=== PATIENT | female | born 1960 | race African-American/Black ===

== ENCOUNTER 2017-01-27 18:51 | Emergency (ER) | payer OTHER ==
[~2017-01-27] VITALS: Ht 165.1 cm; Wt 80.7 kg
[~2017-01-27 18:51] MED LIST: IBUPROFEN600 MG ORAL; TRAMADOL HCL50 MG ORAL; TYLENOL325 MG ORAL
[2017-01-27 19:32] VITALS: BP 146/87
[2017-01-27] MEDS ORDERED: Norco 5mg/325mg tab ORAL ONE (20:45)
[2017-01-27] MEDS ORDERED: TRAMADOL HCL50 MG ORAL (20:51)
[2017-01-27] MEDS ORDERED: IBUPROFEN600 MG ORAL (20:51)
[2017-01-27 21:07] VITALS: BP 138/56
--- NOTE | 2017-01-27 23:05 | Emergency Room Report ---
History of Present Illness General Chief Complaint: Pain Source: Patient (IDALMIS DE LA VEGA) Present Illness HPI The patient is a 56-year-old female presenting for right knee pain. She states that she had knee replacement done many months ago without any known complication. Pain has gradually been increasing and is an 8/10 dull ache. Worse with movement. She states that she has not taken any pain medications for this as she ran out and has been unable to contact her doctor. She denies any recent injury to this area. She denies any other symptoms including nausea , vomiting, fever, chills, numbness or tingling (IDALMIS DE LA VEGA P.A.) Allergies: Coded Allergies: LISINOPRIL (Verified Allergy, Severe, lips swell, 04/02/16) Patient History Past Medical History: see triage record Pertinent Family History: none Last Menstrual Period: N/A Reviewed Nursing Documentation: PMH: Agreed, PSxH: Agreed (IDALMIS [email or web address] LA [email or web address]) Nursing Documentation-PMH Hx Hypertension: Yes Hx Asthma: Yes Hx Diabetes: Yes (IDALMIS DE LA VEGA P.AJenn) Review of Systems All Other Systems: negative except mentioned in HPI (IDALMIS DE LA VEGA P.A.) Physical Exam Vital Signs Date Time Temp Pulse Resp B/P (MAP) Pulse Ox O2 Delivery O2 Flow Rate FiO2 01/27/17 19:12 98.1 73 18 146/87 97 Room Air Sp02 EP Interpretation: reviewed, normal General Appearance: no apparent distress, alert, GCS 15, non-toxic Head: normocephalic, atraumatic Eyes: bilateral eye normal inspection, bilateral eye PERRL ENT: hearing grossly normal, normal pharynx, no angioedema, normal voice Respiratory: chest non-tender, lungs clear, normal breath sounds, speaking full sentences Musculoskeletal: normal range of motion - R knee, swelling - R knee, other - R knee surgical scar Neurologic: alert, oriented x3, responsive, motor strength/tone normal, sensory intact, speech normal Psychiatric: judgement/insight normal, memory normal, mood/affect normal, no suicidal/homicidal ideation Skin: normal color, no rash, warm/dry, well hydrated (IDALMIS DE LA [email or web address]) Medical Decision Making PA Attestation Dr. Wiseman is my supervising physician. Patient management was discussed with my supervising physician (IDALMIS DE LA VEGA) Diagnostic Impression: Primary Impression: Knee pain Qualified Codes: M25.561 - Pain in right knee ER Course The patient is a 56-year-old female s/p R knee replacement presenting for right knee pain. DDx considered but not limited to: chronic pain, sprain, contusion, septic arthritis, gout, among others PE: Afebrile. NAD R knee: Surgical scar. No erythema. Full active and passive ROM. Skin temperature not elevated. R knee Xray shows no acute fracture. Hardware in place. Radiology report states possible effusion. The patient was informed she needs to see her PMD and surgeon SYLVESTER. She is to return to ER if she experiences fever, chills, increased pain, or limited ROM. (IDALMIS DE LA VEGA) ER Course I have reviewed and agree with PA's XR result interpreations Eletronically signed by reji Wiseman MD (Reji Wiseman M.D.) Other X-Ray Diagnostic Results Other X-Ray Diagnostic Results : X-Ray ordered: R knee # of Views/Limited Vs Complete: 3 View Indication: Pain EP Interpretation: Yes Interpretation: no dislocation, no soft tissue swelling, no fractures Impression: No acute disease Electronically Signed by: LUIS CARLOS Angelo Scribe Text I have reviewed the films with my SP. No acute fracture. Minimal effusion. (IDALMIS DE LA VEGA) Last Vital Signs Date Time Temp Pulse Resp B/P (MAP) Pulse Ox O2 Delivery O2 Flow Rate FiO2 01/27/17 21:07 81 20 138/56 97 Room Air 01/27/17 19:32 98.1 Status: improved (IDALMIS DE LA VEGA.A.) Disposition: HOME, SELF-CARE Condition: Improved Scripts Tramadol Hcl* (ULTRAM*) 50 Mg Tablet 50 MG ORAL Q6H Y for For Pain, #10 TAB 0 Refills Prov: IDALMIS DE LA VEGA P.A. 01/27/17 Ibuprofen* (MOTRIN*) 600 Mg Tablet 600 MG ORAL Q8H Y for For Pain, #30 TAB 0 Refills Prov: IDALMIS DE LA VEGA P.A. 01/27/17 Referrals: [employer] [facility],REFERRIN (PCP) Patient Instructions: Knee Pain Additional Instructions: I discussed my findings with the patient. All questions and concerns have been answered. Treatment and medication compliance have been addressed. Return to ED if pain remains or worsens, numbness or tingling occurs, new rash is noticed, fever is noticed, or if needed for any reason. Patient verbalized understanding of discharge instructions. Please followup with your orthopedic surgeon IDALMIS DE LA VEGA Jan 27, 2017 23:05 Reji Wiseman M.D. Feb 01, 2017 06:29
--- NOTE | 2017-01-28 10:45 | Diagnostic Imaging Report ---
Indication: PAIN Technique: 3 views of the right knee Comparison: None Findings:There is a right knee prosthesis. There is a possible bony defect in the inferior pole of the patella. Some heterotopic ossification is seen surrounding the joint. There is probably a small joint effusion. There is also portion of the tibial prosthesis protruding into the joint space. Uncertain as to if this is physiologic Impression:Right knee prosthesis Suspect joint effusion Evidence of heterotopic ossification Questionable bony defect inferior pole of the patella. Possibly postsurgical, but destructive process not excludable Findings discussed by phone with Dr. Sotelo at the time of interpretation
== END 2017-01-27 21:57 | disposition home or self-care (01) ==
LOC: EMR 19:55
DX: M25.561 Pain in right knee (principal); E11.9 Type 2 diabetes mellitus without complications; I10 Essential (primary) hypertension; J45.909 Unspecified asthma, uncomplicated; Z96.651 Presence of right artificial knee joint; Z88.8 Allergy status to other drugs, medicaments and biological substances
CPT/HCPCS: 99284

== ENCOUNTER 2017-02-02 18:13 | Emergency (ER) | payer OTHER ==
[~2017-02-02] VITALS: Ht 165.1 cm; Wt 80.7 kg
[2017-02-02 18:18] VITALS: BP 141/88
--- NOTE | 2017-02-02 18:24 | Emergency Room Report ---
History of Present Illness General Chief Complaint: Dizziness Source: Patient Present Illness HPI 56YOF with DM came with nausea, lightheadedness, near-syncope, chills, and vomiting after getting on bus Was 1 hour after eating chicken sandwich from [employer] Denies actual syncope, chest pain, SOB, abd pain, headache, urinary complaints Vitals stable on scene per EMS Blood sugar 126 here Allergies: Coded Allergies: LISINOPRIL (Verified Allergy, Severe, lips swell, 04/02/16) Patient History Past Medical History: DM Past Surgical History: none, other - knee replacement Pertinent Family History: none Social History: Denies: smoking, alcohol use, drug use Now: No Immunizations: UTD Reviewed Nursing Documentation: PMH: Agreed, PSxH: Agreed Nursing Documentation-PMH Hx Hypertension: Yes Hx Asthma: Yes Hx Diabetes: Yes Review of Systems All Other Systems: negative except mentioned in HPI Physical Exam Vital Signs Date Time Temp Pulse Resp B/P (MAP) Pulse Ox O2 Delivery O2 Flow Rate FiO2 02/02/17 18:08 97.9 67 18 157/86 99 Room Air Sp02 EP Interpretation: reviewed, normal General Appearance: normal inspection, well appearing, no apparent distress, alert, GCS 15, non-toxic Head: normocephalic, atraumatic Eyes: bilateral eye PERRL, bilateral eye EOMI ENT: normal ENT inspection, hearing grossly normal, normal voice Neck: normal inspection, full range of motion, supple, no bony tend Respiratory: normal inspection, lungs clear, normal breath sounds, no respiratory distress, no retraction, no wheezing Cardiovascular #1: regular rate, rhythm, no edema Gastrointestinal: normal inspection, normal bowel sounds, non tender, soft, no guarding, no hernia Genitourinary: no CVA tenderness Musculoskeletal: normal inspection, back normal, normal range of motion, Leticia' s Sign negative Neurologic: normal inspection, alert, oriented x3, responsive, broadband installer III-XII nml as tested, motor strength/tone normal, speech normal Psychiatric: normal inspection, judgement/insight normal, mood/affect normal Skin: normal inspection, normal color, no rash Lymphatic: normal inspection Medical Decision Making Diagnostic Impression: Primary Impression: Near syncope Additional Impression: Lightheaded ER Course 56YOF with what sounds like near-vasovagal mediated syncope Atraumatic No chest pain, SOB Blood sugar, vitals normal ECG is non-ischemic. LVH criteria Less nauseated after zofran Tolerating PO Likely d/t viral gastroenteritis DC home Close PMD followup EKG Diagnostic Results Rate: normal Rhythm: NSR ST Segments: other - LVH ASA given to the pt in ED: No Rhythm Strip Diag. Results EP Interpretation: yes Rate: 75 Rhythm: NSR, no PVC's, no ectopy Last Vital Signs Date Time Temp Pulse Resp B/P (MAP) Pulse Ox O2 Delivery O2 Flow Rate FiO2 02/02/17 18:08 97.9 67 18 157/86 99 Room Air Status: improved Disposition: HOME, SELF-CARE PATRICIA MAHONEY M.D. Feb 02, 2017 18:24
[2017-02-02] MEDS ORDERED: ZOFRAN ODT4 MG ORAL (19:07)
[2017-02-02 19:30] VITALS: BP 139/78
--- NOTE | 2017-02-03 15:36 | Cardiology Report ---
APPROVED REPORT EKG Measurement Heart [id number] AR 142P51 [id number] Normal sinus rhythm Left axis deviation Minimal voltage criteria for LVH, may be normal variant Possible Anterior infarct, age undetermined Abnormal ECG
--- NOTE | 2017-02-03 15:36 | Cardiology Report ---
APPROVED REPORT EKG Measurement Heart [id number] OR 142P51 [id number] Normal sinus rhythm Left axis deviation Minimal voltage criteria for LVH, may be normal variant Possible Anterior infarct, age undetermined Abnormal ECG
--- NOTE | 2017-02-03 15:36 | Cardiology Report ---
APPROVED REPORT EKG Measurement Heart [id number] MD 142P51 [id number] Normal sinus rhythm Left axis deviation Minimal voltage criteria for LVH, may be normal variant Possible Anterior infarct, age undetermined Abnormal ECG
== END 2017-02-02 19:30 | disposition home or self-care (01) ==
LOC: EDBD 18:13 → EMR 18:45
DX: R55 Syncope and collapse (principal); R42 Dizziness and giddiness; I10 Essential (primary) hypertension; E11.9 Type 2 diabetes mellitus without complications; J45.909 Unspecified asthma, uncomplicated; Z79.899 Other long term (current) drug therapy
CPT/HCPCS: 93005; 99283